=== PATIENT | female | born 1975 | race Caucasian/White ===

== ENCOUNTER → 2023-09-08 | Outpatient (CLI) | payer OTHER ==
[~2023-09-08] MED LIST: AIMOVIG AU140 MG/1 M SC; AMLODIPINE BESY10 MG PO; AZIT250 PO; BUDESONIDE-FO10.2 G2 INH; CELEXA40 M9 PO; DULOXETINE HCL60 M1 PO; GABAPENTIN600 MG PO; HYDCHL25 PO; Hydroxychloroq200 MG PO; IPRAT-ALBUT 0.5-3 ML INH; IPRATROPIUM BRO30 ML; LOSA50 PO; MONT10T PO; NORTRIPTYLINE H1012 PO; Norethindrone Ac5 MG PO; ORILISSA150 MG PO; PROGESTERONE100 M1 PO; PROP10 PO; Prinivil10 MG PO; STRIVERDI RESPIM4 G1 INH; TOLTERODINE TART4 MG PO; VITAMIN D325 MC3 PO
== END ==
LOC: LAB SHORT 14:55 → LAB 14:55
DX: R10.30 Lower abdominal pain, unspecified (principal)
CPT/HCPCS: 87086